=== PATIENT | female | born 1980 | race Two or more races ===

== ENCOUNTER → 2018-12-31 | Outpatient (REF) | payer OTHER ==
[2018-12-31 16:15] LABS: CHLAMYDIA DNA AMPLIFICATION NEGATIVE (NEGATIVE); GC DNA AMPLIFICATION NEGATIVE (NEGATIVE)
== END ==
LOC: M SFHCLERA 11:04
PROVIDERS: ATTEND Nurse Practitioner Family
DX: R42 Dizziness and giddiness (principal)

== ENCOUNTER 2020-04-08 14:30 | Emergency (ER) | payer OTHER ==
[~2020-04-08] VITALS: Ht 162.6 cm; Wt 73.0 kg
[2020-04-08] MEDS ORDERED: LIDOCAINE 5% (LIDODERM) PATCH TD ONE (15:15)
[2020-04-08] MEDS ORDERED: ACETAMINOPHEN 500 MG TAB PO ONE (15:15)
--- NOTE | 2020-04-08 16:34 | REP ---
INDICATION: L hip/low back pain COMPARISON: None. TECHNIQUE: Frontal view of the pelvis with neutral and frog lateral views of the left hip. FINDINGS: Osseous structures and joint spaces are intact and normal. Hip joints appear symmetric on frontal pelvic radiograph. No acute fracture or dislocation. No significant degenerative or congenital abnormalities are appreciated. Surrounding soft tissues are unremarkable. IMPRESSION: Normal pelvis and left hip series. <Electronically signed by Carl Miguel > 04/08/20 [id number]
[2020-04-08] MEDS ORDERED: ASPE4PAD TOP (16:58)
[2020-04-08] MEDS ORDERED: CYCL-707 PO (16:58)
[2020-04-08 17:06] VITALS: BP 138/84
[2020-04-08] MEDS ORDERED: CYCLOBENZAPRINE 10MG TABLET PO ONE (17:15)
[2020-04-08] MEDS ORDERED: **NOTE PATIENT COMMENT** MISC XX SCH (21:00)
== END 2020-04-08 17:14 | disposition home or self-care (01) ==
LOC: M ED 14:30
DX: M54.5 Low back pain (principal); M25.552 Pain in left hip; F17.200 Nicotine dependence, unspecified, uncomplicated